=== PATIENT | female | born 1965 | race Caucasian/White ===

== ENCOUNTER 2019-09-23 15:02 | Emergency (ER) | payer BC ==
--- NOTE | 2019-09-23 16:10 | RAD ---
EXAM: Single view of the chest HISTORY: Abdominal pain for 3 days with shortness of breath; chest pain COMPARISON: None FINDINGS: Single view of the chest shows a normal sized cardiomediastinal silhouette. There is no aram dence of consolidation, mass, or pleural effusion. The bones are unremarkable. IMPRESSION: No evidence of acute cardiopulmonary disease
[2019-09-23 16:12] LABS: Hemoglobin 10.5 g/dL (12.0-16.0); Mean Corpuscular HGB CONC 34.5 g/dL (32.0-36.0); Mean Corpuscular Hemoglobin 32.7 pg (27.0-31.0); Mean Corpuscular Volume 94.9 fL (78.0-98.0); RBC Distribution Width 12.5 % (11.5-14.5); White Blood Cell (WBC) Count 1.5 thou/uL (4.8-10.8)
[2019-09-23 16:30] LABS: #Lymphocytes 0.2 thou/uL (1.20-3.40); #Monocytes 0.1 thou/uL (0.11-0.59); #Neutrophils 1.2 thou/uL (1.40-6.50); %Basophils 1.4 % (0.0-1.0); %Eosinophils 1.6 % (0.0-10.0); %Lymphocytes 11.4 % (21.0-51.0); %Neutrophils 76.6 % (42.0-75.0); Band 23 % (5-11); Eosinophils 2 % (0-10); Lymphocytes 10 % (21-51); MDiff Complete? YES; Mean Platelet Volume 8.5 fL (7.4-10.4); Monocytes 2 % (0-10); Neutrophil 59 % (42-75); Ovalocytes SLIGHT = 2-5 cells (100X) (0-1/hpf); Platelet Count 40 thou/uL (130-400); Platelet Morphology Comment Appears Decreased; Polychromasia SLIGHT = 2-3 cells (100X) (0-2/hpf); Reactive Lymphocytes 4 % (0-10); Reflex for Review?? YES
[2019-09-23 16:34] LABS: ALT (SGPT) 24 U/L (8-55); AST (SGOT) 28 U/L (5-34); Alkaline Phosphatase 96 U/L (40-110); Anion Gap 13 mmol/L (10-20); BUN (Urea Nitrogen) 9 mg/dL (9.8-20.1); Bilirubin, Total 1.4 mg/dL (0.2-1.2); Calc. Creatinine Clearance 0 mL/min (70-130); Calcium 8.9 mg/dL (7.8-10.44); Carbon Dioxide 24 mmol/L (22-29); Chloride 105 mmol/L (98-107); Estimated GFR-MDRD 82; Glucose 93 mg/dL (70-105); Potassium 3.9 mmol/L (3.5-5.1); Sodium 138 mmol/L (136-145)
[2019-09-23] MEDS ORDERED: Morphine 4 MG/ML VIAL ONE (19:21)
[2019-09-23 19:48] LABS: PTT 37.3 SEC (22.9-36.1)
[2019-09-23 19:49] LABS: INR-International Normal Ratio 1.4; Prothrombin Time 17.5 SEC (12.0-14.7)
== END 2019-09-23 20:27 | disposition short-term general hospital (02) ==
LOC: ERS 15:02
DX: I81 Portal vein thrombosis (principal); K74.60 Unspecified cirrhosis of liver
CPT/HCPCS: 36415; 71045; 80053; 83735; 84484; 85025; 85610; 85730; 96374; J2270; J7620

== ENCOUNTER 2020-01-12 06:21 | Outpatient (CLI) | payer BC, OTHER ==
[2020-01-13 11:19] LABS: SARS-CoV-2 MS2 Positive; SARS-CoV-2 N Gene Negative; SARS-CoV-2 S Gene Negative; SARS-CoV-2 orf1ab Negative
== END 2020-01-12 06:22 | disposition home or self-care (01) ==
LOC: LABBT 06:21
PROVIDERS: ATTEND Internal Medicine Gastroenterology
DX: Z01.812 Encounter for preprocedural laboratory examination (principal); Z11.59 Encounter for screening for other viral diseases; K74.60 Unspecified cirrhosis of liver; I85.00 Esophageal varices without bleeding
CPT/HCPCS: 87635; U0003

== ENCOUNTER 2020-01-14 11:38 | Day surgery (SDC) | payer BC ==
[2020-01-12 13:33] VITALS: BMI 30.1
[2020-01-14] MEDS ORDERED: PROPOFOL 200 MG/20 ML VIAL ONE (12:36)
[2020-01-14] MEDS ORDERED: Lidocaine 1% PF 5 ML VIAL ONE (12:36)
--- NOTE | 2020-01-14 20:49 | OP ---
DATE OF PROCEDURE: 01/14/2020 PRIMARY CARE PHYSICIAN: Daren Jacobson MD TITLE OF PROCEDURE: Esophagogastroduodenoscopy with banding. PREPROCEDURE DIAGNOSES: 1. Followup of esophageal varices. 2. 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 3. History of portal vein and splenic vein thrombosis, on Eliquis. POSTPROCEDURE DIAGNOSES: 1. Exam to the second portion of duodenum. 2. Two grade 2 distal esophageal varices at 34 cm from the incisors, banded successfully. 3. Esophagogastric junction estimated at 37 cm. 4. Mild portal hypertensive gastropathy, not biopsied. 5. Grossly normal appearing duodenum. DESCRIPTION OF PROCEDURE: Written informed consent was obtained. The patient was brought to the endoscopy suite. Total intravenous anesthesia was administered by [facility]. The patient was placed in the left lateral decubitus position. A bite block was inserted into the mouth. The [employer]ax video diagnostic gastroscope was introduced into the oral cavity and the esophagus was easily intubated. The gastroscope was advanced under direct visualization to the second portion of the duodenum. Endoscopic findings revealed two columns of grade 1-2 distal esophageal varices, most notably at 34 cm from the incisors. Red Compa sign was apparent on one of the varices, but there was no active hemorrhage. The length of the esophageal varices was about 6 to 7 cm. The stomach was entered and carefully examined. This included a retroflexed view of the cardia and fundus. Mucosal changes consistent with portal gastropathy of mild severity were noted in the entire stomach in a patchy distribution. On retroflexion, there was suggestion of an early gastric varix at the gastric cardia that was not actively bleeding. The duodenum from the bulb to the second portion was then inspected and appeared grossly normal. No duodenal varices were identified. Using a multiband ligator, the two columns of grade 1-2 distal esophageal varices were banded with a total of three rubber bands. There was no active bleeding at the conclusion of the exam. The upper digestive tract was decompressed as the endoscope was completely removed from the patient. She was transferred to the Day Stay Surgery area for postprocedure monitoring. There were no immediate complications. RECOMMENDATIONS: 1. Resume Eliquis in the morning. 2. Continue other usual medications. 3. For pain, I will prescribe Ultram 50 mg p.r.n. 4. Repeat EGD in 2 to 3 months. Job ID: [id number]
== END 2020-01-14 15:15 | disposition home or self-care (01) ==
LOC: SDC 11:38
PROVIDERS: ATTEND Internal Medicine Gastroenterology
PROC: 06L38CZ Occlusion of Esophageal Vein with Extraluminal Device, Via Natural or Artificial Opening Endoscopic (ICD-10-PCS; principal; 2020-01-14)
DX: K76.0 Fatty (change of) liver, not elsewhere classified (principal); K74.69 Other cirrhosis of liver; I85.10 Secondary esophageal varices without bleeding; K76.6 Portal hypertension; K31.89 Other diseases of stomach and duodenum; Z79.01 Long term (current) use of anticoagulants; Z79.899 Other long term (current) drug therapy
CPT/HCPCS: J2001; J2704

== ENCOUNTER 2020-12-06 16:36 | Outpatient (CLI) | payer BC ==
[2020-12-07 01:56] LABS: SARS-CoV-2 PCR by NAA Not Detected (NotDetected)
== END 2020-12-06 16:37 | disposition home or self-care (01) ==
LOC: LABBT 16:36
PROVIDERS: ATTEND Internal Medicine Gastroenterology
DX: Z01.812 Encounter for preprocedural laboratory examination (principal); I85.00 Esophageal varices without bleeding; K74.60 Unspecified cirrhosis of liver; Z20.822 Contact with and (suspected) exposure to COVID-19
CPT/HCPCS: 87635; U0003; U0005

== ENCOUNTER 2020-12-09 06:32 | Day surgery (SDC) | payer BC ==
[2020-12-08 11:42] VITALS: BMI 30.9
[2020-12-09] MEDS ORDERED: Lidocaine 1% PF 5 ML VIAL ONE (09:35)
[2020-12-09] MEDS ORDERED: PROPOFOL 200 MG/20 ML VIAL ONE (09:35)
== END 2020-12-09 10:58 | disposition home or self-care (01) ==
LOC: SDC 06:32
PROVIDERS: ATTEND Internal Medicine Gastroenterology
PROC: 0DJ08ZZ Inspection of Upper Intestinal Tract, Via Natural or Artificial Opening Endoscopic (ICD-10-PCS; principal; 2020-12-09)
DX: K75.81 Nonalcoholic steatohepatitis (NASH) (principal); I85.10 Secondary esophageal varices without bleeding; K74.60 Unspecified cirrhosis of liver; K76.6 Portal hypertension; K31.89 Other diseases of stomach and duodenum; Z79.01 Long term (current) use of anticoagulants; Z79.899 Other long term (current) drug therapy; Z86.718 Personal history of other venous thrombosis and embolism
CPT/HCPCS: J2704

== ENCOUNTER 2024-02-22 11:50 | Emergency (ER) | payer BC | END 2024-02-22 14:07 | disposition admitted as inpatient to this hospital (09) | LOC: ERS 11:50 | PROC: 0DJ08ZZ Inspection of Upper Intestinal Tract, Via Natural or Artificial Opening Endoscopic (ICD-10-PCS; principal; 2024-02-22) | DX: T18.128A Food in esophagus causing other injury, initial encounter (principal); K76.6 Portal hypertension; K31.89 Other diseases of stomach and duodenum; K74.60 Unspecified cirrhosis of liver; I85.10 Secondary esophageal varices without bleeding; K25.9 Gastric ulcer, unspecified as acute or chronic, without hemorrhage or perforation; W44.F3XA Food entering into or through a natural orifice, initial encounter | CPT/HCPCS: 99285; J2704; J3490 ==